=== PATIENT | male | born 1980 | race American Indian/Alaskan Native ===

== ENCOUNTER 2017-07-29 11:32 | Day surgery (SDC) | payer BC ==
[~2017-07-29 11:32] MED LIST: ANCEF/STERILE WATER 2 GM/20 ML IV NR
[2017-07-29] MEDS ORDERED: DILAUDID IV PRN (14:21)
--- NOTE | 2017-07-29 14:21 | Anesthesia Consultation ---
Anesthesia Consult and Med Hx Date of service: 07/29/17 - Airway Anesthetic Teeth Evaluation: Good ROM Head & Neck: Adequate Mental/Hyoid Distance: Adequate Mallampati Class: Class I Intubation Access Assessment: Good - Pulmonary Exam CTA: Yes - Cardiac Exam Cardiac Exam: RRR - Pre-Operative Health Status ASA Pre-Surgery Classification: ASA2 Proposed Anesthetic Plan: General - Cardiovascular System Hx Hypertension: Yes (not on meds) - Endocrine Hx Renal Disease: Yes (stones)
--- NOTE | 2017-07-29 14:21 | Anesthesia Day of Surgery ---
Anesthesia Day of Surgery - Day of Surgery Patient Examined: Yes Patient H&P Reviewed: Yes Patient is NPO: Yes
[2017-07-29] MEDS ORDERED: NACL BACTERIOSTATIC INFILTRATI ONE ×2 (14:27)
[2017-07-29] MEDS ORDERED: LACTATED RINGERS 1,000 ML ONE ×2 (14:59)
[2017-07-29] MEDS ORDERED: DECADRON ONE (15:00)
[2017-07-29] MEDS ORDERED: LACTATED RINGERS 1,000 ML IV SCH (15:00)
[2017-07-29] MEDS ORDERED: XYLOCAINE CARDIAC IV ONE ×2 (15:22)
[2017-07-29] MEDS ORDERED: DIPRIVAN 10 MG/ML IV ONE ×2 (15:22)
[2017-07-29] MEDS ORDERED: SUBLIMAZE ONE ×2 (15:22)
[2017-07-29] MEDS ORDERED: ZOFRAN ONE ×2 (15:22)
--- NOTE | 2017-07-29 16:24 | Post Operative Note ---
Date of procedure: 07/29/17 Pre-op diagnosis: r mid ureteral stone Post-op diagnosis: same Findings: same Procedure: r eswl Anesthesia: PABLO Surgeon: ROGERIO ALEJANDRO Estimated blood loss: none Pathology: none Condition: stable Disposition: PACU
--- NOTE | 2017-07-29 16:26 | Discharge Summary ---
Short Stay Discharge Plan Activity: other (no straining ) Weight Bearing Status: Full Weight Bearing Diet: regular Special Instructions: other (inc fluids ) Follow up with: PRIMARY MD DANIEL [Primary Care Provider] - 7 Days ELIJAH GAYTAN MD [Staff Physician] - 7 Days
[2017-07-29 17:04] VITALS: BP 149/107
--- NOTE | 2017-07-29 17:36 | Anesthesia Consultation ---
Anesthesia Consult and Med Hx Date of service: 07/29/17 - Airway Anesthetic Teeth Evaluation: Good ROM Head & Neck: Adequate Mental/Hyoid Distance: Adequate Mallampati Class: Class II Intubation Access Assessment: Probably Good - Pulmonary Exam CTA: Yes - Cardiac Exam Cardiac Exam: RRR - Pre-Operative Health Status ASA Pre-Surgery Classification: ASA2 Proposed Anesthetic Plan: IV Sedation - Cardiovascular System Hx Hypertension: Yes (not on meds) - Endocrine Hx Renal Disease: Yes (stones)
--- NOTE | 2017-07-29 20:24 | Operative Report ---
PREOPERATIVE DIAGNOSIS: Right mid ureteral stone. POSTOPERATIVE DIAGNOSES: Right mid ureteral stone with moderate hydronephrosis. PROCEDURE: In situ lithotripsy. SURGEON: Zane Dee MD ANESTHESIA: General. FINDINGS: This gentleman who has really no pain who presented with right mid ureteral stone. Already risks and implications were discussed. We talked about stenting, lithotripsy. He did not want a stent if at all possible. DESCRIPTION OF PROCEDURE: The patient was brought to lithotripsy suite and placed on the operating table. Following induction of anesthesia, stone was easily localized both the AP and oblique image. Shocks were begun at 1 kV increased to maximum of 6 kV. Total of 2500 shocks were given. We gave him dye to see if it opened up and it was still moderate hydronephrosis and a nephrogram with some contrast in the upper collecting system. I called his . I called ___. I was willing to place a stent. The patient really did not want to. Everybody agreed that since he did not want it, we will try to go without it to see if it is fragmented or he may need followup ureteroscopy. All the options were discussed. He was brought to recovery in stable condition without a stent without cystoscopy, but he needs close followup as I discussed with his . JOB# [id number] LESIA/ROBERTA
== END 2017-07-29 11:33 | disposition home or self-care (01) ==
LOC: OR 11:32
PROVIDERS: ATTEND Urology
DX: N13.2 Hydronephrosis with renal and ureteral calculous obstruction (principal); I10 Essential (primary) hypertension
CPT/HCPCS: 50590; J0690; J1100; J2001; J2405; J2704; J3010; J7120; Q9967